=== PATIENT | male | born 1965 | race Caucasian/White ===

== ENCOUNTER 2017-05-21 09:35 | Emergency (ER) | payer BC ==
[2017-05-21] MEDS ORDERED: KETOROLAC TROMETHAMINE 30 MG/ML VIAL IV ONE (09:56)
[2017-05-21] MEDS ORDERED: HYDROmorphone HCL 1 MG/ML DISP.SYRIN IV ONE ×2 (09:56→12:00)
[2017-05-21] MEDS ORDERED: NORMAL SALINE 1,000 ML IV ONE ×3 (09:56→12:24)
[2017-05-21] MEDS ORDERED: HYDROmorphone HCL 1 MG/ML DISP.SYRIN ONE (09:59)
[2017-05-21] MEDS ORDERED: KETOROLAC TROMETHAMINE 30 MG/ML VIAL ONE (09:59)
--- NOTE | 2017-05-21 10:01 | ERNOTE ---
Abdominal HPI - Narrative Date of Service: 05/21/17 - General Chief Complaint: Abdominal Pain Time Seen by Provider: 05/21/17 09:53 Source: patient Exam Limitations: no limitations - Immun/Allergies/Home Medications Immunizatons: IMMUNIZATION HX Immunizations Up to Date Yes History of Influenza Vaccine No Hx Pneumococcal Vaccination No Allergies/Adverse Reactions: Allergies No Known Allergies Allergy (Verified 05/21/17 10:24) Home Medications: HOME MEDICATIONS Aspirin [Aspirin Chewable] 81 mg PO MOWEFR 12/20/12 [Last Taken 01/08/13] Atenolol [Tenormin] 25 mg PO BID 12/20/12 [Last Taken 05/23/15 06:00] Enalapril Maleate [Vasotec] 20 mg PO BID 12/20/12 [Last Taken 05/23/15 06:00] Simvastatin [Zocor] 80 mg PO DAILY 12/20/12 [Last Taken 01/08/13] Multivitamin [Multivitamins] 1 each PO DAILY 01/08/13 [Last Taken 01/08/13] HYDROcodone/ACETAMINOPHEN [Gunlock 5-325] 1 tab PO Q6H PRN #20 tab 05/21/17 [Last Taken Unknown] Nortriptyline HCl [Pamelor] 25 mg PO DAILY 05/21/17 [Last Taken Unknown] Sulindac 200 mg PO BID 05/21/17 [Last Taken Unknown] Tamsulosin HCl [Flomax] 0.4 mg PO DAILY@1800 #7 cap 05/21/17 [Last Taken Unknown ] - History of Present Illness Narrative: Patient presents to the ED for severe left sided pain. He relates that he woke up feeling fine, urinated and had acute onset of severe left sided abdominal pain radiating to his left testicle. nauseated with it, no vomiting. No fever. never had it before. Comes in waves, can be severe. Nothing makes it better or worse. has not seen anyone else for this. Timing: constant Quality: severe Activities at Onset: other - urinating Modifying Factors - (Improves): Present: other - nothing Modifying Factors - (Worsens): Present: other - nothing Associated Symptoms: Present: other - left flank pain. Absent: chest pain, fever/chills, shortness of breath, swelling/mass in abdomen Prior Treatment: Absent: recently seen Review of Systems - Review of Systems Constitutional: Absent: fever EYE: Present: no symptoms reported ENT: Present: no symptoms reported Respiratory: Absent: shortness of breath Cardiology: Absent: chest pain Gastrointestinal/Abdominal: Present: See HPI Genitourinary: Present: See HPI. Absent: dysuria Musculoskeletal: Present: See HPI Skin: Absent: rash Neurological: Absent: weakness - Patient's Past Medical History Patient History - Medical: Migraines, Other Patient History - Cardiac/Respiratory: Deep Vein Thrombosis, Hypertension, Hyperlipidemia, Pulmonary Embolism Patient History - Cancer: No Hx of Cancer Patient History - Surgical Procedures: Other Patient History - Other: None - Social History Living Situations: home Abuse History: No History of abuse Psych History: No pertinent hx Smoking Status: Former smoker Alcohol Use: occasionally Drug Use: none - Immunizations Immunizations Up to Date: Yes Hx Pneumococcal Vaccination: No History of Influenza Vaccine: No Physical Exam - Physical Exam General Appearance: Present: alert Head Exam: Present: normal inspection Eye Exam: Normal inspection: bilateral, PERRL: bilateral Ears, Nose, Throat: Present: normal ENT inspection Neck: Present: normal inspection Respiratory: Present: no respiratory distress, normal breath sounds, no accessory muscle use, lungs clear Cardiovascular/Chest: Present: regular rate, rhythm, normal peripheral pulses Gastrointestinal/Abdominal: Present: normal bowel sounds, soft, no organomegaly , other - left low abdominal tenderness. No peritoneal signs, no guarding or rebound Male Genitals Exam: Present: normal genitalia, other - I cannot elicit any tenderness left testicle or either testicle. No clear hernia. 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 - Vital Signs Patient's Vital Signs:: I have reviewed the patient's vital signs. Vital Signs: Vital Signs 05/21/17 09:45 Temperature 36.4 C L Pulse Rate 65 Respiratory 16 Rate Blood Pressure 181/103 O2 Sat by Pulse 98 Oximetry - CT/Ultrasound CT/Ultrasound Narrative: I reviewed official CT report. 3mm distal stone c/w his Sx. - Progress/Reassessment Chief Complaint: Abdominal Pain Progress Note-Subjective: 05/21/17 13:34 Pain improved. He has kidney stone. No complications noted. I discussed warning signs and reasons to return as well as the need for close f/u. Departure - Departure Clinical Impression: Kidney stone Disposition: Home self-care Condition: Stable Instructions: Kidney Stones, [id number] Additional Instructions: Fluids. Strain all urine. If you are still having any symptoms Tuesday morning call the Urologist to be seen. Follow-up with your primary doctor as well in 2- 3 days. Return for fever, vomiting, increased pain or if your condition worsens or changes in any way. No driving with pain medications. Referrals: Arsh Solitario MD [Primary Care Provider] - Prescriptions: HYDROcodone/ACETAMINOPHEN [Gunlock 5-325] 1 tab PO Q6H PRN #20 tab PRN Reason: Pain Tamsulosin HCl [Flomax] 0.4 mg PO DAILY@1800 #7 cap
[2017-05-21 10:11] LABS: Hemoglobin 13.8 gm/dL (13.5-18.0); Mean Corpuscular Hgb Conc 34.5 g/dl (32-36); Neutrophil # 4.5 K/mm3 (1.3-6.0); Neutrophil % 55.7 % (42-75.0); Platelet Count 230 K/mm3 (150-450); Red Cell Distribution Width 13.4 % (11.5-14.0)
[2017-05-21 10:23] LABS: Albumin * 3.8 gm/dl (3.4-5.0); Anion Gap 17.7 mmol/L (6.8-13.8); BUN/Creatinine Ratio 15.4 (9.0-21.6); Bilirubin, Total 0.7 mg/dL (0.0-1.1); Ca. Corrected For Albumin 8.7 mg/dL (8.4-10.2); Calcium * 8.9 mg/dL (7.9-10.9); Carbon Dioxide 23.3 mmol/L (24-32.6); Total Protein 7.3 gm/dL (6.2-8.2)
[2017-05-21 13:09] VITALS: BP 151/81
[2017-05-21 13:10] LABS: Urine Bilirubin Negative (NEGATIVE); Urine Blood 250 /ul (NEGATIVE); Urine Ketone Negative (NEGATIVE); Urine Nitrite Negative (NEGATIVE); Urine Protein Negative (NEGATIVE); Urine Urobilinogen Normal (NORMAL)
[2017-05-21 13:21] LABS: Urine Appearance Clear; Urine Color Yellow
[2017-05-21 13:22] LABS: Urine Bacteria None Seen; Urine RBC 25-50 /hpf (0-5); Urine WBC None Seen /hpf (0-5)
== END 2017-05-21 13:43 | disposition home or self-care (01) ==
LOC: ER 09:35
PROC: 0T9B7ZZ Drainage of Bladder, Via Natural or Artificial Opening (ICD-10-PCS; principal; 2017-05-21)
DX: N20.0 Calculus of kidney (principal); Z86.718 Personal history of other venous thrombosis and embolism; Z86.711 Personal history of pulmonary embolism; Z87.891 Personal history of nicotine dependence; I10 Essential (primary) hypertension; E78.5 Hyperlipidemia, unspecified; G43.909 Migraine, unspecified, not intractable, without status migrainosus